=== PATIENT | female | born 1945 | race Caucasian/White ===

== ENCOUNTER → 2017-02-22 | Outpatient (CLI) | payer MEDICARE, OTHER ==
--- NOTE | 2017-02-24 09:48 | MAM ---
EXAM DESCRIPTION: 3D Screening BILATERAL : Digital Mammography. CLINICAL HISTORY: 72 years Female ANNUAL SCREENING . No complaints. No family history of breast cancer. Postmenopausal. Has taken HRT 5 or more years ago. Bilateral breast reduction surgery. COMPARISON: 2-D digital screening bilateral study 01/03/2014. No prior reports available. TECHNIQUE: Bilateral CC and MLO projection full-field images, 3-D tomosynthesis digital mammographic technique. Also bilateral synthesized CC/ MLO full-field images. CAD not utilized. FINDINGS: The breast parenchymal density pattern is: Scattered areas of fibroglandular density. No skin thickening or nipple retraction bilateral oval lobular and circular shaped mostly fatty density mass is with scattered calcifications and rim calcifications consistent with fat necrosis. More right breast than left. Bilateral axillary lymph nodes. Calcifications have increased since the prior study. Prominent area of architectural distortion in the lower outer quadrant of the right breast. Stable since the prior study, probably related to breast reduction surgery. No focal, stellate mass or density, focal asymmetry , and no suspicious microcalcifications bilaterally. Stable mammogram densities compared to prior study, taking into account differences in mammographic technique. Calcifications have increased bilaterally. IMPRESSION: BI-RADS CATEGORY: 2 - BENIGN FINDINGS. FOLLOW UP: Routine digital bilateral screening, one year interval from February 2017. Written communication explaining the IMPRESSION and follow-up, will be mailed to the patient and referring health care provider. According to the [employer], yearly mammograms are recommended starting at age 40 and continuing as long as a woman is in good health. Any breast change noted on a breast self-exam should be reported promptly to the patient's healthcare provider. Breast MRI is recommended for women with an approximately 20-25% or greater lifetime risk of breast cancer, including women with a strong family history of breast or ovarian cancer and women who have been treated for Hodgkin's disease. A negative mammographic report should not delay tissue diagnosis in patients with significant clinical history or physical findings. Extremely dense breast tissue limits the sensitivity of digital mammography. Electronically signed by: Cyrus Kovacs MD 02/24/2017 9:47 AM SNOW PLOW OPERATOR
== END ==
LOC: MAMMO 11:22
PROVIDERS: ATTEND Family Medicine
DX: Z12.31 Encounter for screening mammogram for malignant neoplasm of breast (principal)
CPT/HCPCS: 77063; G0202

== ENCOUNTER → 2017-04-22 | Outpatient (CLI) | payer MEDICARE, OTHER | LOC: GMAB 10:17 | PROVIDERS: ATTEND Family Medicine | DX: I10 Essential (primary) hypertension (principal) ==

== ENCOUNTER → 2017-05-14 | Outpatient (CLI) | payer OTHER ==
--- NOTE | 2017-05-14 17:33 | US ---
THYROID ULTRASOUND CLINICAL INFORMATION: Multinodular thyroid gland TECHNIQUE: Thyroid sonography was performed. COMPARISON: None FINDINGS: Thyroid size: Right lobe 5.6 x 2.1 x 2.7 cm. This is normal. Left lobe 5.4 x 2.5 x 3.0 cm. This is normal. Texture: Normal texture of the background thyroid tissue. Estimated total number of nodules >/=1 cm: 2 Right lobe imaging findings: The right lobe does not appear enlarged. Sonographically solid lesion in the mid to lower right thyroid lobe is dominant and measures 1.7 x 1.3 x 1.2 cm. Nodules greater than 1.5 cm should be further evaluated with sono guided fine-needle aspiration biopsy if not previously performed. The second nodule in the posterior mid to upper right thyroid lobe measures 1.3 x 0.6 x 0.7 cm. No definite internal calcifications. This could be followed up in one year. Thyroid isthmus is abnormally thickened measuring 8 mm. Normal thickness is 2 to 3 mm. Near isoechoic nodule is seen in the left side of the thyroid isthmus which measures 1.7 x 0.9 x 1.3 cm is. Fine-needle aspiration biopsy of this nodule is recommended. The left thyroid lobe is prominent in size and contains numerous small nodules. Complex cystic lesion is seen in the mid to upper lateral left thyroid lobe which measures 1.1 x 1.1 x 1.1 cm. At this size, this could be followed. Cystic necrosis of thyroid adenoma is the most likely consideration with this appearance. Another cystic and solid nodule is seen in the posterior mid left thyroid lobe which measures 1.4 x 1.2 x 1.3 cm is. No internal calcifications to suggest the need for biopsy at this time. Numerous smaller lesions are seen throughout both thyroid lobes as well as the thyroid isthmus in the 3 to 5 mm size range. No worrisome punctate microcalcifications. A few comet tail artifacts are seen consistent with tiny colloid cysts. IMPRESSION: Dominant lesion in the mid to lower right thyroid lobe measures 1.7 cm in greatest dimension. Further evaluation is recommended as discussed above. Thickened isthmus with near isoechoic nodule measuring 1.7 cm in greatest dimension. Further evaluation is recommended. Complex appearance of the left thyroid lobe with cystic and solid lesions less than 1.5 cm in diameter. Continued imaging follow-up is recommended as discussed above. Electronically signed by: Billy Armstrong MD 05/14/2017 5:32 PM LEAVE SPECIALIST
--- NOTE | 2017-05-14 17:38 | US ---
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 TECHNIQUE: Carotid Doppler ultrasound FINDINGS: Right Submitted images show mildly tortuous right CCA with calcified plaque in the right carotid bulb. Widely patent right internal and external carotid arteries are noted. Antegrade flow in the right vertebral artery. Images of the right carotid bulb with area measurements suggest 25% area luminal narrowing. Degree of diameter narrowing is approximately 35-40%. This is considered a mild stenosis could not hemodynamically significant. The following flow velocities were obtained: Common carotid artery peak systolic flow velocity measurement is 86 cm/s. Internal carotid artery peak systolic flow velocity measurement is 72 cm/s. The right internal carotid to common carotid peak systolic flow velocity ratio 0.8 is normal. External carotid artery peak systolic flow velocity measures 61.5 cm/s. Flow in the right vertebral artery is antegrade. Left Submitted images show moderate tortuosity of the left CCA with minimal intimal thickening but no significant stenosis. Extensive calcified plaque is seen in the left carotid bulb. Widely patent origins of internal and external carotid arteries. Antegrade flow in the left vertebral artery. Left carotid bulb transverse image with area measurements shows area luminal stenosis of 14% The following flow velocities were obtained: Common carotid artery peak systolic flow velocity measures 88 cm/s. Internal carotid artery peak systolic flow velocity measures 64.3 cm/s. The left internal carotid to common carotid peak systolic flow velocity ratio of 0.7 is normal. External carotid artery peak systolic flow velocity measures 60.2 cm/s. Flow in the left vertebral artery is antegrade. IMPRESSION: Arteriosclerotic calcified plaque in the carotid bulbs bilaterally with mild stenoses which are not hemodynamically significant. Electronically signed by: Billy Armstrong MD 05/14/2017 5:37 PM [facility]
== END ==
LOC: US 10:00
PROVIDERS: ATTEND Family Medicine
DX: I65.23 Occlusion and stenosis of bilateral carotid arteries (principal); E04.9 Nontoxic goiter, unspecified

== ENCOUNTER → 2017-05-17 | Outpatient (CLI) | payer OTHER | LOC: GMAB 17:39 | PROVIDERS: ATTEND Family Medicine | DX: R79.89 Other specified abnormal findings of blood chemistry (principal); R74.8 Abnormal levels of other serum enzymes ==

== ENCOUNTER → 2017-12-03 | Outpatient (CLI) | payer OTHER | LOC: GMAE 10:42 | PROVIDERS: ATTEND Family Medicine | DX: M06.9 Rheumatoid arthritis, unspecified (principal) ==

== ENCOUNTER → 2018-02-10 | Outpatient (CLI) | payer OTHER | LOC: GMAE 10:54 | PROVIDERS: ATTEND Family Medicine | DX: C18.9 Malignant neoplasm of colon, unspecified (principal) ==

== ENCOUNTER → 2018-05-25 | Outpatient (CLI) | payer OTHER | LOC: GMAE 10:53 | PROVIDERS: ATTEND Family Medicine | DX: C18.9 Malignant neoplasm of colon, unspecified (principal); I10 Essential (primary) hypertension ==

== ENCOUNTER → 2018-07-13 | Outpatient (CLI) | payer OTHER ==
--- NOTE | 2018-07-13 15:50 | US ---
EXAM DESCRIPTION: Renal Arteries: Ultrasound. CLINICAL HISTORY: HYPERTENSION COMPARISON: Two-dimensional ultrasound evaluation of the bilateral kidneys on the same visit. TECHNIQUE: Transcutaneous scanning: Grayscale mode. Doppler systolic and diastolic measurements of the abdominal aorta, renal arteries, intra renal arteries, and renal veins. FINDINGS: PSV (cm/sec): Aorta: 88 Right renal artery: 124 Left renal artery: 123 EDV (cm/sec): Right renal artery: 43 Left renal artery: 45 Renal veins: Unremarkable. IVC: Unremarkable. Intrarenal RI's: (Normal range less than 0.7) Superior Right: 0.57 Left: 0.67. Mid Right: 0.54 Left: 0.6. Inferior Right: 0.62 Left: 0.61 Renal Aortic Ratio: Right RAR = RRA PSV/Aortic PSV = 124 /88= 1.41. (Normal range less than 3.5) Left RAR = LRA PSV/Aortic PSV = 123/88 = 1.4. End Diastolic Ratio: Right EDR = RRA EDV/RRA PSV = 43/124 = 0.347. (Normal range greater than 0.25) Left EDR = LRA EDV/LRA PSV = 45/123= 0.366. Other: No significant calcification seen in the renal arteries.. IMPRESSION: Renal artery Doppler evaluation showing no evidence of renal artery stenosis or significant renovascular parenchymal disease. Electronically signed by: Cyrus Koavcs MD 07/13/2018 3:48 PM CDT
== END ==
LOC: US 08:25
PROVIDERS: ATTEND Family Medicine
DX: I10 Essential (primary) hypertension (principal)

== ENCOUNTER 2019-10-14 14:26 | Emergency (ER) | payer OTHER ==
--- NOTE | 2019-10-14 14:46 | ED.PDOC ---
History of Present Illness - General Time Seen by Provider: 10/14/19 14:30 Source: patient, RN notes reviewed, Vital Signs reviewed, family Exam Limitations: no limitations - History of Present Illness Initial Comments: Patient is a 74-year-old female who presents to ED for evaluation of right hip pain and left wrist pain after a fall at home. States she was walking out to her back porch and tripped on a step and fell onto the grass on her left side. She denies hitting her head, loss of consciousness, neck pain or back pain. She has been ambulatory since the fall with pain to her right hip. Also reports pain to the dorsal left wrist. She has not taken anything for the pain. Denies any other injuries. Patient is not on any blood thinners. Reports she has had a previous surgery to the right hip several years ago. Allergies/Adverse Reactions: Allergies NO KNOWN ALLERGY Allergy (Unverified 08/27/12 00:02) Review of Systems - Review of Systems Constitutional: Denies: chills, fever, weakness EENTM: Denies: blurred vision, nose pain, nose congestion, throat pain Respiratory: Denies: cough, short of breath, wheezing Cardiology: Denies: chest pain, edema, palpitations, syncope Gastrointestinal/Abdominal: Denies: abdominal pain, nausea, vomiting Musculoskeletal: States: see HPI Skin: States: other - no laceration or abrasions Neurological: Denies: headache, paresthesia, weakness All other Systems: Reviewed and Negative Family Medical History - Family History Mother Family History: No Known Physical Exam - Physical Exam General Appearance: Alert, Comfortable, No apparent distress Eye Exam: bilateral normal - PERRL Neck: non-tender, full range of motion, supple, other - no vertebral tenderness to neck or back Respiratory: chest non-tender, lungs clear, normal breath sounds, no respiratory distress, no accessory muscle use Cardiovascular/Chest: regular rate, rhythm, no edema Peripheral Pulses: radial,right: 2+, radial,left: 2+, dorsalis pedis,right: 2+, dorsalis pedis,left: 2+ Gastrointestinal/Abdominal: non tender, soft, no pulsatile mass Back Exam: normal inspection, no vertebral tenderness Extremity: other - Has full range of motion in all extremities. There is no deformity, laceration or abrasion. Mild tender to palpation to the dorsal left wrist and right lateral hip areas. She has good range of motion in the right hip with minimal pain. There is no shortening or rotation of the right leg. Neurologic: photo engraver II-XII nml as tested, no motor/sensory deficits, alert, normal mood/affect, oriented x 3 Skin Exam: normal color, warm/dry Progress - Progress Progress: 10/14/19 15:55 Presents to the ED after a ground-level fall at home where she tripped on a step and fell into the grass. Reports pain to right hip and left wrist. Denies hitting her head, headache, loss of consciousness, nausea, neck or back pain or any other injuries. Imaging shows a nondisplaced left distal radius fracture and right superior pubic ramus fracture. She is neurovascularly intact on exam. I have placed a sugar tong splint to the left arm which she will keep in place. She has an orthopedic surgeon in [place] that she will follow-up with in 2 to 3 days. I have discussed pelvic fracture is stable and she will be weightbearing as tolerated. She will follow-up with her orthopedist for continued evaluation and possible physical therapy for this. I have given her a 20 pill prescription for Carpenter 5 mg. CTRL# [id number] - Results/Orders Results/Orders: LEFT WRIST XRAY EXAM: XR Left Wrist Complete, 3 or More Views CLINICAL HISTORY: The patient is 74 years old and is Female; trauma TECHNIQUE: Three views of the left wrist. COMPARISON: No relevant prior studies available. FINDINGS: Bones/joints: Acute comminuted fracture in the distal radius, not significantly displaced. Diffuse bone demineralization. Moderate degenerative changes in the basal joint. Old nonunion ulnar styloid fracture. No dislocation. Soft tissues: Unremarkable. No radiopaque foreign body. IMPRESSION: Acute comminuted fracture in the distal radius, not significantly displaced. RIGHT HIP XRAY EXAM: XR Pelvis, 1 or 2 Views CLINICAL HISTORY: The patient is 74 years old and is Female; trauma TECHNIQUE: Single frontal view of the pelvis. COMPARISON: No relevant prior studies available. FINDINGS: Bones/joints: Acute fracture, right superior pubic ramus. Moderate degenerative changes in the right hip. No dislocation. Previous ORIF proximal right femur. No acute fracture in the proximal right femur. Soft tissues: Unremarkable. Vasculature: IVC filter noted at the superior edge of the film. Gastrointestinal tract: Moderate stool and gas in the visualized colon. IMPRESSION: 1. Acute fracture, right superior pubic ramus. 2. Additional non-emergent findings as above. Departure - Departure Clinical Impression: Fracture of left distal radius Qualifiers: Encounter type: initial encounter Fracture type: closed Fracture morphology: unspecified fracture morphology Qualified Code(s): S52.502A - Unspecified fracture of the lower end of left radius, initial encounter for closed fracture Fracture of superior pubic ramus Qualifiers: Encounter type: initial encounter Fracture type: closed Laterality: right Qualified Code(s): S32.511A - Fracture of superior rim of right pubis, initial encounter for closed fracture Time of Disposition: 15:46 Disposition: Discharge to Home or Self Care Condition: Good Instructions: Radius Fracture (DC) Diet: resume usual diet Activity: increase activity as tolerated Referrals: BRITTNY MARRERO MD [Primary Care Provider] - 1-2 Days Additional Instructions: Carpenter 5/325 mg, #20 RX written Comments: You had a left distal radius fracture that is closed with no significant displacement. You will need to keep the splint in place until you follow-up with your orthopedic surgeon in 2 to 3 days for further evaluation. You also have a right superior pubic ramus fracture. This is a stable fracture. You may weight-bear as tolerated and follow-up with your orthopedist. Physical therapy may be scheduled for this injury.
[2019-10-14] MEDS: ACETAMINOPHEN 325 MG TAB PO ONE (14:51)
--- NOTE | 2019-10-14 15:27 | RAD ---
EXAM: XR Right Hip With Pelvis When Performed, 2 or 3 Views CLINICAL HISTORY: The patient is 74 years old and is Female; trauma TECHNIQUE: Two views of the right hip . COMPARISON: No relevant prior studies available. FINDINGS: Bones/joints: Acute fracture in the right superior pubic ramus. Moderate degenerative changes in the right hip. No dislocation. Previous ORIF proximal right femur. Soft tissues: Unremarkable. Vasculature: IVC filter noted at the edge of the film. IMPRESSION: 1. Acute fracture in the right superior pubic ramus. 2. Non-acute findings as above. Electronically signed by: Jeannine Mehta MD 10/14/2019 3:25 PM CDT
--- NOTE | 2019-10-14 15:28 | RAD ---
EXAM: XR Pelvis, 1 or 2 Views CLINICAL HISTORY: The patient is 74 years old and is Female; trauma TECHNIQUE: Single frontal view of the pelvis. COMPARISON: No relevant prior studies available. FINDINGS: Bones/joints: Acute fracture, right superior pubic ramus. Moderate degenerative changes in the right hip. No dislocation. Previous ORIF proximal right femur. No acute fracture in the proximal right femur. Soft tissues: Unremarkable. Vasculature: IVC filter noted at the superior edge of the film. Gastrointestinal tract: Moderate stool and gas in the visualized colon. IMPRESSION: 1. Acute fracture, right superior pubic ramus. 2. Additional non-emergent findings as above. Electronically signed by: Jeannine Mehta MD 10/14/2019 3:26 PM CDT
--- NOTE | 2019-10-14 15:30 | RAD ---
EXAM: XR Left Wrist Complete, 3 or More Views CLINICAL HISTORY: The patient is 74 years old and is Female; trauma TECHNIQUE: Three views of the left wrist. COMPARISON: No relevant prior studies available. FINDINGS: Bones/joints: Acute comminuted fracture in the distal radius, not significantly displaced. Diffuse bone demineralization. Moderate degenerative changes in the basal joint. Old nonunion ulnar styloid fracture. No dislocation. Soft tissues: Unremarkable. No radiopaque foreign body. IMPRESSION: Acute comminuted fracture in the distal radius, not significantly displaced. Electronically signed by: Jeannine Mehta MD 10/14/2019 3:29 PM CDT
[2019-10-14] MEDS: HYDROcodone 5MG/APAP 325MG 1 EA TAB PO ONE (16:09)
[2019-10-14 16:41] VITALS: BP 168/93; TEMP 96.2
[2019-10-14 16:43] VITALS: O2SAT 96
== END 2019-10-14 16:25 | disposition home or self-care (01) ==
LOC: ER 14:26
DX: S52.502A Unspecified fracture of the lower end of left radius, initial encounter for closed fracture (principal); S32.511A Fracture of superior rim of right pubis, initial encounter for closed fracture; W01.0XXA Fall on same level from slipping, tripping and stumbling without subsequent striking against object, initial encounter; Y92.009 Unspecified place in unspecified non-institutional (private) residence as the place of occurrence of the external cause

== ENCOUNTER → 2019-12-21 | Outpatient (CLI) | payer OTHER | LOC: GMAE 10:48 | PROVIDERS: ATTEND Family Medicine | DX: M05.79 Rheumatoid arthritis with rheumatoid factor of multiple sites without organ or systems involvement (principal) ==

== ENCOUNTER 2020-01-22 05:02 | Day surgery (SDC) | payer OTHER ==
[2020-01-22] MEDS ORDERED: MIDAZOLAM INJ 2 MG/2 ML VIAL ONE (06:45)
[2020-01-22] MEDS ORDERED: TROP1%/CYCLOPEN 1%/PHENYL 2.5% DROPS OPHTH ONE (07:45)
[2020-01-22] MEDS ORDERED: PROPARACAINE 0.5% OPHTH SOL 15 ML BTTL RIGHT_EYE ONE (08:32)
[2020-01-22] MEDS ORDERED: TOBRAMYCIN SULF 0.3 % OPHT SOL 1 DROP RIGHT_EYE ONE ×2 (08:42→08:59)
[2020-01-22] MEDS ORDERED: LIDOCAINE 1% MPF 2 ML VIAL INJ ONE ×2 (08:42→08:54)
[2020-01-22] MEDS ORDERED: DEXAMETHASONE 0.1% OPHTH SOL 1 DROP RIGHT_EYE ONE ×2 (08:42→08:59)
[2020-01-22] MEDS ORDERED: MOXIFLOXACIN HCL (OPHTH) 1 DROP DROPS RIGHT_EYE ONE ×2 (08:42→09:00)
[2020-01-22] MEDS ORDERED: BRIMONIDINE 0.2% OPHTH DROPS RIGHT_EYE ONE ×2 (08:43→08:59)
== END 2020-01-22 09:50 | disposition home or self-care (01) ==
LOC: AMB 05:02
PROVIDERS: ATTEND Ophthalmology
DX: H25.11 Age-related nuclear cataract, right eye (principal)
CPT/HCPCS: 00142; 66984; J2250